=== PATIENT | female | born 1950 | race Caucasian/White ===

== ENCOUNTER 2020-10-17 05:49 | Inpatient (IN) ==
--- NOTE | 2020-09-27 14:47 | PAT Medication Instructions ---
Medication Instructions Date of Service September 27, 2020 Home Medications allopurinol 100 mg PO QAM amitriptyline 25 mg PO HS cholecalciferol (vitamin D3) [Vitamin D3] 25 mcg PO DAILY clonazepam [Klonopin] 1 mg PO HS fludrocortisone [Florinef] 0.05 mg PO BID fluoxetine [Prozac] 40 mg PO QAM hydrocortisone 5 mg PO UD hydrocortisone 15 mg PO QAM metformin 500 mg PO BID omega-3 fatty acids [Fish Oil] 1,000 mg PO BID omeprazole [Prilosec] 20 mg PO QAM rosuvastatin [Crestor] 20 mg PO QAM vit C,G-Ps-msvlz-lutein-zeaxan [PreserVision AREDS-2] 2 tab PO QAM STOP taking 2 weeks before surgery If surgery is within 2 weeks, stop taking as soon as possible. omega-3 fatty acids [Fish Oil] 1,000 mg PO BID vit C,B-Zy-jziex-lutein-zeaxan [PreserVision AREDS-2] 2 tab PO QAM DO NOT take the morning of surgery cholecalciferol (vitamin D3) [Vitamin D3] 25 mcg PO DAILY metformin 500 mg PO BID Take morning of surgery With a small sip of water, OTHERWISE NOTHING TO EAT OR DRINK AFTER MIDNIGHT: allopurinol 100 mg PO QAM fludrocortisone [Florinef] 0.05 mg PO BID fluoxetine [Prozac] 40 mg PO QAM hydrocortisone 5 mg PO UD hydrocortisone 15 mg PO QAM omeprazole [Prilosec] 20 mg PO QAM rosuvastatin [Crestor] 20 mg PO QAM Take evening before surgery amitriptyline 25 mg PO HS clonazepam [Klonopin] 1 mg PO HS fludrocortisone [Florinef] 0.05 mg PO BID metformin 500 mg PO BID omega-3 fatty acids [Fish Oil] 1,000 mg PO BID Other Notes If you have any questions please call us at [phone] or [phone] or [phone] or [phone]
--- NOTE | 2020-10-01 12:12 | Anesthesiology Consultation ---
Date of Service October 01, 2020 Assessment & Plan (1) Encounter for pre-operative examination: Chart Review Chart Review: Pending: Refer to Additional Notes / Consult section (pending surgeon ordered PCP clearance, preop Covid testing and response from endocrinology ) and Patient seen in Pre Admission Testing Awaiting surgeon ordered PCP clearance scheduled 10/14/20. Will also send note to patient's sheet manager inquiring if any pre,demetrice or post operative recommendations needed re: Addisons disease - Check BSG AM DOS Per PAT appt on 10/01/20, pt resides in [facility]. Denies any recent travel or large group activities. Uses PPE. No known Covid positive contacts or Covid related symptoms. No known Covid infection in the past 90 days. Educated patient to follow up with surgeon's office regarding Covid testing- educated Covid testing usually done 6-7 days prior to surgery. Educated on importance of self quarantining, social distancing and wearing mask in public both for the patient and household contacts. Teaching & Discussion Pre-Anesthesia Teaching/Discussion Notes: Instructed NPO after midnight before surgery,except medications with 15 cc of water. Medication instructions provided according to the PAT guidelines. History Surgery Operation Date: 10/17/20 10:05 Proposed Procedures p L5-S1 Decompression and Fusion, Spinal Cord Monitoring - Devin Vincent, Height/Weight Height: 5 ft 3.5 in Weight: 101.9 kg Allergies Allergy/AdvReac Type Severity Reaction Status Date / Time cefadroxil Allergy Unknown CAN'T Verified 09/24/20 15:11 REMEMBER Medications Home Medications Medication Instructions Recorded Confirmed Last Taken allopurinol 100 mg PO QAM 09/19/20 09/24/20 Unknown amitriptyline 25 mg PO HS 09/19/20 09/24/20 Unknown cholecalciferol (vitamin D3) 25 mcg PO DAILY 09/19/20 09/24/20 Unknown [Vitamin D3] clonazepam [Klonopin] 1 mg PO HS 09/19/20 09/24/20 Unknown fludrocortisone [Florinef] 0.05 mg PO BID 09/19/20 09/24/20 Unknown fluoxetine [Prozac] 40 mg PO QAM 09/19/20 09/24/20 Unknown hydrocortisone 5 mg PO UD 09/19/20 09/24/20 Unknown hydrocortisone 15 mg PO QAM 09/19/20 09/24/20 Unknown metformin 500 mg PO BID 09/19/20 09/24/20 Unknown omega-3 fatty acids [Fish Oil] 1,000 mg PO BID 09/19/20 09/24/20 Unknown omeprazole [Prilosec] 20 mg PO QAM 09/19/20 09/24/20 Unknown rosuvastatin [Crestor] 20 mg PO QAM 09/19/20 09/24/20 Unknown vit C,Z-Gh-prwhp-lutein-zeaxan 2 tab PO QAM 09/19/20 09/24/20 Unknown [PreserVision AREDS-2] Past Medical History Medical History Arvind disease Pt follows with Dr. Rik Can Stable Barretts esophagus Follows with GI Chronic back pain Degenerative disc disease Depression Diabetes mellitus, type 2 Well controlled and stable GERD (gastroesophageal reflux disease) Well controlled and stable Hiatal hernia Hyperlipidemia Diet controlled Sensorineural hearing loss of both ears Sleep apnea cpap Tinnitus, bilateral Will be getting hearing aids in the future Exercise / Class Metabolic Activity III < 4 Walking/Shop/Light housework (one flight of stairs- no chest pain- mild SOB ) Past Surgical History Surgical History History of arthroscopy of left shoulder History of bunionectomy of right great toe History of right shoulder replacement History of tonsillectomy and adenoidectomy Hx laparoscopic cholecystectomy Hx of arthroscopy of knee Hx of cataract surgery right and left Hx of colonoscopy Hx of detached retina repair right and left Hx of esophagogastroduodenoscopy Hx of tubal ligation Past Anesthesia History No Hx of Anesthesia Complications (one episode of grogginess - no reintubation or ICU stay ) and No Family Hx of Anesthesia Complications History of PONV No Hx of PONV and No Hx of Motion Sickness Social History Smoking Status: Current every day smoker tobacco type: cigarettes Smoking cigarettes per day: 1ppd Do You Dip or Chew Tobacco: No Hx Alcohol Use: No Hx Substance Use: No substance use type: does not use Review of Systems Patient denies chest pain, shortness of breath, dyspnea on exertion, cough, wheezing, palpitations. No hx of seizures, stroke, ME. No hx of blood clots or blood transfusions Physical Exam Vital Signs VITALS BP 152/80 P 71 TEMP 98.7 SP02 97% RESP 16 Constitutional no acute distress ENMT Mouth: no TMJ clicking Thyromental Distance: > or= 3.5 Finger Breadths (3.5) Mallampati Class: III Full upper denture Missing bottom molars Neck + short neck and + thick neck (mild ); neck extension not limited Respiratory normal respiratory effort; no respiratory distress Auscultation: lungs clear to auscultation bilaterally; no wheezes Cardiovascular Rate/Rhythm: regular rate and regular rhythm Heart Sounds: no murmur Vessels: no carotid bruit Musculoskeletal Spine: no pain with cervical ROM Extremities: extremities normal to inspection Psychiatric Orientation: alert Testing Laboratory Results 10/01/20 12:31 10/01/20 12:31 PT 10.3 Seconds (9.0-12.0) 10/01/20 12:31 INR 1.0 (0.9-1.1) 10/01/20 12:31 APTT 27.3 Seconds (21.0-31.0) 10/01/20 12:31 Hemoglobin A1c 6.1 % (4.5-5.6) H 10/01/20 12:31 Urine Color Yellow 10/01/20 12:31 Urine Appearance Clear (Clear) 10/01/20 12:31 Urine pH 6.5 (4.5-7.5) 10/01/20 12:31 Ur Specific [place] 1.014 (1.000-1.030) 10/01/20 12:31 Urine Protein Negative (Negative) 10/01/20 12:31 Urine Glucose (UA) Negative (Negative) 10/01/20 12:31 Urine Ketones Negative (Negative) 10/01/20 12:31 Urine Nitrite Negative (Negative) 10/01/20 12:31 Ur Leukocyte Esterase Trace (Negative) H 10/01/20 12:31 Urine WBC (Auto) 1-5 /hpf (0-5) 10/01/20 12:31 Urine RBC (Auto) 0-4 /hpf (0-4) 10/01/20 12:31 U Hyaline Cast (Auto) 1-5 /lpf (0-5) 10/01/20 12:31 U Epithel Cells (Auto) 5-10 /lpf (0-5) H 10/01/20 12:31 Urine Bacteria (Auto) Negative (Negative) 10/01/20 12:31 Blood Type A Positive 10/01/20 12:31 Antibody Screen NEGATIVE 10/01/20 12:31 Electrocardiogram Date: 10/01/20 Findings: + NSR @ (75bpm) Nonspecific T wave abnormality. Chest X-Ray Date: 10/01/20 Findings: + NAD Echocardiogram Date: 01/01/17 EF: 60% LV Function: normal Valvular Disease: + no significant valvular disease (Not well seen) Suboptimal quality of the study precludes a proper assessment, however there is probably normal LV cavity size well thickness and preserved LV systolic function. Probably normal RV size and systolic function. No obvious cardiac silhouette of embolism seen on this technically difficult and suboptimal study.
--- NOTE | 2020-10-01 13:13 | XRay Report ---
XR chest Pre-admission PA/Lat CLINICAL HISTORY: Preoperative chest COMPARISON STUDY: 12/30/2015 FINDINGS: The cardiac and mediastinal contours are normal. There is no failure. There is no focal pul monary consolidation. There are no pleural effusions. There are postsurgical changes of a reverse tot al right shoulder arthroplasty[ IMPRESSION: No active disease in the chest. ACT 112: Negative or not required by law. Electronically signed by: Yonas Bolivar M.D. 10/01/2020 1:11 PM
[2020-10-01 13:59] LABS: Basophils # (auto) 0.01 K/uL (0-0.2); Basophils % (auto) 0.1 %; Eosinophils # (auto) 0.08 K/uL (0-0.5); Eosinophils % (auto) 0.9 %; Hematocrit (blood only) 40.8 % (37-47); Hemoglobin 13.3 g/dL (12.0-16.0); Immature Granulocytes # (auto) 0.03 K/uL (0.00-0.02); Immature Granulocytes % (auto) 0.4 %; Lymphocytes # (auto) 1.37 K/uL (1.2-3.4); Lymphocytes % (auto) 16.2 %; Mean Corpuscular Hemoglobin 29.9 pg (25-34); Mean Corpuscular Hgb Conc 32.6 g/dL (32-36); Mean Corpuscular Volume 91.7 fL (80-100); Mean Platelet Volume 11.3 fL (7.4-10.4); Monocytes # (auto) 0.49 K/uL (0.11-0.59); Monocytes % (auto) 5.8 %; Neutrophils % (auto) 76.6 %; Platelet Count 244 K/uL (130-400); RDW Coefficient of Variation 15.7 % (11.5-14.5); RDW Standard Deviation 53.1 fL (36.4-46.3); Red Blood Count 4.45 M/uL (4.2-5.4); White Blood Count 8.48 K/uL (4.8-10.8)
[2020-10-01 14:06] LABS: Appearance Urine Clear (Clear); Bacteria Urine Automated Negative (Negative); Bilirubin Urine Negative (Negative); Blood Urine Negative (Negative); Color Urine Yellow; Glucose Urine UA Negative (Negative); Ketones Urine Negative (Negative); Leukocyte Esterase Urine Trace (Negative); Nitrite Urine Negative (Negative); Protein Urine Negative (Negative); RBC Urine Automated 0-4 /hpf (0-4); Specific Gravity Urine 1.014 (1.000-1.030); Urobilinogen Urine Negative (Negative); pH Urine 6.5 (4.5-7.5)
[2020-10-01 14:12] LABS: Partial Thromboplastin Time 27.3 Seconds (21.0-31.0); Prothrombin Time 10.3 Seconds (9.0-12.0)
[2020-10-01 14:45] LABS: Estimated Average Glucose 128 mg/dl; Hemoglobin A1C 6.1 % (4.5-5.6)
[2020-10-01 15:01] LABS: BUN Creatinine Ratio 19.9 (10-20); Calcium 8.6 mg/dl (8.5-10.1); Creatinine Clr Calc Pharmacy 81.5 ml/min; Est GFR (African American) 94.3; Est GFR (Non-African American) 81.3; Potassium 3.4 mmol/L (3.5-5.1)
--- NOTE | 2020-10-01 16:54 | Electrocardiogram Report ---
Test Reason : Blood Pressure : / mmHG Vent. Rate : 075 BPM Atrial Rate : 075 BPM P-R Int : 152 ms QRS Dur : 078 ms QT Int : 382 ms P-R-T Axes : 066 070 054 degrees QTc Int : 426 ms Normal sinus rhythm Nonspecific T wave abnormality Abnormal ECG When compared with ECG of 30-DEC-2015 10:30, Nonspecific T wave abnormality, improved in Inferior leads T wave inversion no longer evident in Anterior leads Confirmed by Johnathon Campos ([id number]) on 10/01/2020 4:54:16 PM Referred By: Devin Vincent Confirmed By:Az Campos
[2020-10-17] MEDS ORDERED: HYDROCORTISONE SOD 100 MG in SYRINGE 0 ML IV SCH (06:00)
[2020-10-17] MEDS ORDERED: ACETAMINOPHEN 500 MG TAB PO SCH (06:00)
[2020-10-17] MEDS ORDERED: ceFAZolin 2000MG 2,000 MG/15 ML SYR IV SCH (06:00)
[2020-10-17] MEDS ORDERED: HYDROCORTISONE SOD SUCCINATE 100 MG/2 ML VIAL IV SCH (06:00)
[2020-10-17] MEDS ORDERED: GABAPENTIN 300 MG CAP PO SCH (06:00)
[2020-10-17] MEDS ORDERED: CeleBREX 200 MG CAP PO SCH (06:00)
[2020-10-17] MEDS ORDERED: LR 15ML/HR IV SCH (06:00)
[2020-10-17] MEDS ORDERED: ePHEDrine sulfate 50 MG/ML AMP IV PRN ×2 (06:50→07:32)
[2020-10-17] MEDS ORDERED: HYDROmorphone INJ 2 MG/ML SYR/VIAL IV PRN ×2 (06:50→07:32)
[2020-10-17] MEDS ORDERED: fentaNYL citrate 100 MCG/2 ML VIAL IV PRN ×2 (06:50→07:32)
[2020-10-17] MEDS ORDERED: ATROPINE SULFATE 0.1 MG/ML 10ML SYR IV PRN ×2 (06:50→07:32)
[2020-10-17] MEDS ORDERED: ONDANSETRON INJ 2 MG/ML 2 ML VIAL IV PRN ×3 (06:50→10:54)
[2020-10-17] MEDS ORDERED: BACITRACIN INJ 50,000 UNIT VIAL ONE (06:55)
[2020-10-17] MEDS ORDERED: BUPIVACAINE/EPINEPHRINE 0.5% MPF 1:200,000 30 ML VIAL ONE (06:55)
[2020-10-17] MEDS ORDERED: fentaNYL citrate 100 MCG/2 ML VIAL ONE (07:10)
[2020-10-17] MEDS ORDERED: LIDOCAINE HCL 2% 2 ML VIAL/AMP(20MG/ML) INFIL ONE (07:10)
[2020-10-17] MEDS ORDERED: LARYING-O-JET KIT (LTA) ONE (07:10)
[2020-10-17] MEDS ORDERED: PHENYLEPHRINE 100MCG/ML 5ML SYR ONE (07:10)
[2020-10-17] MEDS ORDERED: MIDAZOLAM HCL 1 MG/ML 2ML VIAL ONE (07:10)
[2020-10-17] MEDS ORDERED: NEOSTIGMINE METHYLSULFATE 1 MG/ML 10ML VIAL ONE (07:10)
[2020-10-17] MEDS ORDERED: DEXAMETHASONE SOD INJ 4 MG/ML VIAL ONE (07:10)
[2020-10-17] MEDS ORDERED: ROCURONIUM BROMIDE 10 MG/ML 5 ML VIAL IV ONE (07:10)
[2020-10-17] MEDS ORDERED: ONDANSETRON INJ 2 MG/ML 2 ML VIAL ONE (07:10)
[2020-10-17] MEDS ORDERED: GLYCOPYRROLATE 0.2 MG/ML VIAL ONE (07:10)
[2020-10-17] MEDS ORDERED: ePHEDrine sulfate 50 MG/ML SYR ONE (07:10)
[2020-10-17] MEDS ORDERED: PROPOFOL IV EMULSION 10 MG/ML 20 ML VIAL IV ONE (07:10)
[2020-10-17] MEDS ORDERED: PROMETHAZINE HCL 12.5 MG in SODIUM CHLORIDE 0.9% 50 ML IV PRN ×2 (07:32→10:54)
--- NOTE | 2020-10-17 07:36 | History & Physical Bridge Note ---
Date of Service October 17, 2020 History & Physical Bridge Note I have examined the patient, reviewed the History & Physical and in the interval since the performance of the History & Physical I have noted the following changes of clinical significance: no changes noted
--- NOTE | 2020-10-17 07:37 | History & Physical Report ---
Date of Service October 17, 2020 Assessment & Plan (1) Neurogenic claudication due to lumbar spinal stenosis: Admission and Anticipated Discharge Date Admission Date: L5-S1 decompression fusion History of Present Illness Chief Complaint: Back and leg pain Primary Care Provider: Silvestre Harrington This is a 70-year-old female presents with chronic persistent back and leg pain. After failing course of nonoperative care is here for surgical invention. Allergies Allergy/AdvReac Type Severity Reaction Status Date / Time cefadroxil Allergy Unknown CAN'T Verified 10/17/20 06:30 REMEMBER Home Medications Medication Instructions Recorded Confirmed Type allopurinol 100 mg PO QAM 09/19/20 10/17/20 History cholecalciferol (vitamin D3) 25 mcg PO DAILY 09/19/20 10/17/20 History [Vitamin D3] fludrocortisone [Florinef] 0.05 mg PO BID 09/19/20 10/17/20 History fluoxetine [Prozac] 40 mg PO QAM 09/19/20 10/17/20 History hydrocortisone 5 mg PO UD 09/19/20 10/17/20 History hydrocortisone 15 mg PO QAM 09/19/20 10/17/20 History metformin 500 mg PO BID 09/19/20 10/17/20 History omega-3 fatty acids [Fish Oil] 1,000 mg PO BID 09/19/20 10/17/20 History omeprazole [Prilosec] 20 mg PO QAM 09/19/20 10/17/20 History rosuvastatin [Crestor] 20 mg PO QAM 09/19/20 10/17/20 History vit C,F-Ax-uzzyd-lutein-zeaxan 2 tab PO QAM 09/19/20 10/17/20 History [PreserVision AREDS-2] amitriptyline 50 mg PO HS 10/11/20 10/17/20 History clonazepam [Klonopin] 2 mg PO HS 10/11/20 10/17/20 History Past Med/Surg History Medical History [place] disease Pt follows with Dr. Jolly Anxiety Stable Barretts esophagus Follows with GI Chronic back pain Degenerative disc disease Depression Diabetes mellitus, type 2 Well controlled and stable GERD (gastroesophageal reflux disease) Well controlled and stable Hiatal hernia Hyperlipidemia Diet controlled Sensorineural hearing loss of both ears Sleep apnea cpap Tinnitus, bilateral Will be getting hearing aids in the future Surgical History History of arthroscopy of left shoulder History of bunionectomy of right great toe History of right shoulder replacement History of tonsillectomy and adenoidectomy Hx laparoscopic cholecystectomy Hx of arthroscopy of knee Hx of cataract surgery right and left Hx of colonoscopy Hx of detached retina repair right and left Hx of esophagogastroduodenoscopy Hx of tubal ligation Social History Smoking Status: Current every day smoker Cigarettes Per Day: 1ppd; Second Hand Exposure: No; Do You Dip or Chew Tobacco: No; Tobacco Cessation Education Requested by Patient: No Hx Alcohol Use: No Hx Substance Use: No Preferred Language: Egyptian Communication Ability: Effective Dinkey Engine Operator Required: No Beliefs That Will Affect Care: None Current Living Situation: Spouse Other Information That Helps Us Care for You: No Feels Safe at Home: Yes Safety Concerns: Feels Safe At This Time Assistive Devices: Denture - Upper and Glasses Physical Exam Physical Exam: Patient is alert and oriented Heart regular in rhythm Lungs clear to auscultation Results & Data ([facility]) Vital Signs (Past 12 Hours) Vital Signs Temp Pulse Resp BP Pulse Ox 10/17/20 06:18 36.6 C 69 18 188/86 H 96
[2020-10-17] MEDS ORDERED: CLINDAMYCIN 900 MG in DEXTROSE 5% 50 ML IV SCH (08:00)
[2020-10-17] MEDS ORDERED: HYDROmorphone INJ 2 MG/ML SYR/VIAL ONE (08:20)
[2020-10-17] MEDS ORDERED: FLOSEAL HEMOSTATIC MATRIX 10ML TOP ONE (08:32)
--- NOTE | 2020-10-17 09:23 | Operative Report ---
Post Operative Report Pre & Post Diagnosis Operation Date: 10/17/20 07:45 Pre-Op Diagnosis: Intervertebral Disc Disorders with Radiculopathy Post-Op Diagnosis: Intervertebral Disc Disorders with Radiculopathy I identified the patient and participated in the time-out.: Yes Procedure Operation Date: 10/17/20 07:45 Actual Procedures #1 lumbar decompression with bilateral medial facetectomies and foraminotomies L4-5 and L5-S1. #2 posterior spinal fusion L5-S1. #3 placement posterior instrumentation L5-S1. #4 interbody fusion L5-S1. #5 placement peek cage 11 x 22 mm at L5-S1 peer #6 placement locally harvested morselized autograft in the posterior lateral gutters. #7 placement infuse collagen sponge combined with master graft in the posterior gutters and I factor in the interbody space. Surgeon Devin Vincent, DO Laboratory Animal Caretaker Wisam Crook Estimated Blood Loss 50 Findings See Below The patient is 5 foot 3 inches tall weighing over 102 kg with a BMI in excess of 39. Patient's body habitus did add significant technical difficulty requiring her deepest retractors longus instruments in order to perform her procedure. This had at least 50% increase to the operative time. Specimens None Indications This is a 70-year-old female who presents above-mentioned diagnosis after failing course of nonoperative care is here for surgical invention. Description of Procedure Patient was met with identified informed consent obtained. Patient was then taken to the operative suite underwent ablation placed in a prone position the [place] table top Ricky frame. All bony prominences well-padded eyes inspected to ensure no external pressure placed upon. This point the lumbar spine was prepped and draped in a sterile fashion. Sharp dissection with the assistance of Bovie cautery was performed down to and exposing the lamina transverse proces ses of L5 and the sacral ala bilaterally. From caudal to cephalad fashion complete laminectomy L5 partial laminectomy L4 was performed including bilateral medial facetectomies and foraminotomies addressing severe spinal stenosis. Pedicle screws were then placed in L5 and S1 levels bilaterally with assistance of fluoroscopy and the purposes jim placed. By way of a transforaminal approach on the left complete discectomy was performed endplates curetted to subcortical bleeding bone and an 11 x 22 mm peek cage filled with I factor tapped into position. Rods were locked in final position bilaterally. The transverse processes of L5 and the sacral ala burred to subcortical bleeding bone. Infuse collagen sponge master graft local autograft placed in the posterior gutters. 15 round MARLON drain inserted. The incision was then closed with 1 Vicryl in the fascia 2-0 Vicryl subcutaneously and 4 Monocryl for final skin closure. Steri- Strip sterile dressings placed. Patient will continue PACU stable condition. Please note spinal cord monitoring was utilized at the procedure no changes noted. Lastly Wisam Crook was present at the entire procedure involved in patient positioning complex portions of the surgery and final skin closure. I attest to the content of the Intraoperative Record and any orders documented therein. Any exceptions are noted below.
--- NOTE | 2020-10-17 09:34 | Fluoroscopy Report ---
FL lumbar spine 2-3V CLINICAL HISTORY: L5-S1 DECOMP/FUSION COMPARISON STUDY: FLUOROSCOPY TIME: 19 seconds. NUMBER OF FLUOROSCOPIC IMAGES: 2 FINDINGS: 2 intraoperative fluoroscopic spot images reveal postsurgical changes at L5 discectomy and interbody fusion with posterior pedicle screw fixation. IMPRESSION: Postsurgical changes of an L5-S1 spinal decompression and fusion. ACT 112: Negative or not required by law. Electronically signed by: Yonas Bolivar M.D. 10/17/2020 9:33 AM
--- NOTE | 2020-10-17 10:21 | Anesthesiology Progress Note ---
Date of Service October 17, 2020 Anesthesia Post Procedure Vital Signs Vital Signs: Temp Pulse Pulse Resp BP BP Pulse Ox 10/17/20 10:15 81 16 138/80 99 10/17/20 10:05 36.5 C 81 16 152/88 H 99 10/17/20 09:55 79 16 157/88 H 100 10/17/20 09:45 83 16 172/81 H 100 10/17/20 09:38 36.6 C 86 16 164/99 H 100 10/17/20 06:18 36.6 C 69 18 188/86 H 96 Pain Intensity Lower Back: Pain Intensity: 5 Transfer of Care Handoff Completed per policy Notes Mental Status: alert / awake / arousable and participated in evaluation Patient Amnestic to Procedure: Yes Nausea / Vomiting: adequately controlled Pain: adequately controlled Airway Patency, RR, SpO2: stable & adequate BP & HR: stable & adequate Hydration State: stable & adequate Anesthetic Complications: no major complications apparent and Pt Satisfied with anesthetic care
[2020-10-17] MEDS ORDERED: diphenhydrAMINE Capsule 25 MG CAP PO PRN (10:54)
[2020-10-17] MEDS ORDERED: LORazepam 0.5 MG/1 ML VIAL IV PRN (10:54)
[2020-10-17] MEDS ORDERED: SOD PHOSPHATE/SOD BIPHOSPHATE ENEMA 132 ML BTL PR PRN (10:54)
[2020-10-17] MEDS ORDERED: HYDROmorphone INJ 0.5 MG/0.5 ML SYR IV PRN (10:54)
[2020-10-17] MEDS ORDERED: DO NOT ADMINISTER FLU VACCINE PRN (10:54)
[2020-10-17] MEDS ORDERED: ACETAMINOPHEN 1,000 MG/100 ML VIAL IV PRN (10:54)
[2020-10-17] MEDS ORDERED: METOCLOPRAMIDE HCL INJ 5 MG/ML 2 ML VIAL IV PRN (10:54)
[2020-10-17] MEDS ORDERED: NALOXONE HCL 0.4 MG/1 ML VIAL/CARP IV PRN (10:54)
[2020-10-17] MEDS ORDERED: LORazepam 0.5 MG TAB PO PRN (10:54)
[2020-10-17] MEDS ORDERED: ONDANSETRON 4 MG OD TAB PO PRN (10:54)
[2020-10-17] MEDS ORDERED: FAMOTIDINE 20 MG TAB PO PRN (10:54)
[2020-10-17] MEDS ORDERED: ALUMINUM/MAGNESIUM SUSP 30 ML UDC PO PRN (10:54)
[2020-10-17] MEDS ORDERED: hydrOXYzine HCl 25 MG TAB PO PRN (10:54)
[2020-10-17] MEDS ORDERED: DO NOT ADMINISTER PNEUMOCOCCAL VACCINE PRN (10:54)
[2020-10-17] MEDS ORDERED: MAGNESIUM HYDROXIDE SUSP 30 ML UDC PO PRN (10:54)
[2020-10-17] MEDS: SODIUM CHLORIDE 0.9% 1000ML 1,000 ML IV SCH ×2 (11:12→21:57)
--- NOTE | 2020-10-17 12:41 | Consultation ---
Date of Consultation October 17, 2020 Assessment & Plan (1) Encounter for postoperative care: H/O Neurogenic claudication due to lumbar spinal stenosis S/P L5-S1 decompression fusion - Patients seen in her room and doing well - No reported significant intraoperative complications - Perioperative management per primary team, pain control, DVT PPx, antibiotics, mobility -Systolic blood pressure on the higher side, likely secondary to pain - PT/OT consult Post-Operative Hypoxia Currently patient is on 1 L of nasal cannula. Does not use any nasal cannula oxygen at home. Likely in the setting of recent sedation use. Attempt to wean it down. Denies any chest pain or any shortness of breath. Encourage incentive spirometer. H/O Arvind disease: Preoperatively endocrinology recommended 100 mg of hydrocortisone IV prepro cedure followed by 50 mg to cortisone every 8 hours until she can tolerate p.o. Prior to admission patient is on Cortef 15 mg at 8 AM, 5 mg at 2 PM and 5 mg at 8 PM. Doses should be doubled for 3 to 7 days as per endocrinology for 3 to 7 days. 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, start ISS, glycemic control per pharmacy H/O Barrets Esophagus: stable H/O Chronic back pain/DJD: as above H/O Hyperlipidemia: c/w crestor 20 mg daily H/O Gout: c/w allopurinol 100 mg daily H/O Anxiety/insomnia: c/w klonopin 2mg HS H/O GERD: c/w Prilosec 20 mg daily H/O Sleep apnea: History of Present Illness Yesica Henry is 70 year old female with PMHx of Arvind's disease, diabetes mellitus type 2, chronic back pain, degenerative joint disease, anxiety, insomnia, hyperlipidemia, apnea, Hayes's esophagus, GERD and active smoker presenting on 10/17/20 for elective lumbar decompression with bilateral medial facetectomies and foraminotomies L4-5 and L5-S1. Patient was seen in her room recovering from anesthesia. Estimated Blood loss during operation was 50 ml. Overall patient appears to be doing okay. Primary complaint is a significant back pain at the moment. Denies any chest pain or shortness of breath. Denies any nausea or vomiting. Does report dizziness but that is at baseline. Denies any abdominal pain. Denies any weakness. Rest of the review of systems negative. Attending Physician: Devin Vincent DO Allergies Allergy/AdvReac Type Severity Reaction Status Date / Time cefadroxil Allergy Unknown CAN'T Verified 10/17/20 06:30 REMEMBER Home Medications Medication Instructions Recorded Confirmed Type allopurinol 100 mg PO QAM 09/19/20 10/17/20 History cholecalciferol (vitamin D3) 25 mcg PO DAILY 09/19/20 10/17/20 History [Vitamin D3] fludrocortisone [Florinef] 0.05 mg PO BID 09/19/20 10/17/20 History fluoxetine [Prozac] 40 mg PO QAM 09/19/20 10/17/20 History hydrocortisone 5 mg PO UD 09/19/20 10/17/20 History hydrocortisone 15 mg PO QAM 09/19/20 10/17/20 History metformin 500 mg PO BID 09/19/20 10/17/20 History omega-3 fatty acids [Fish Oil] 1,000 mg PO BID 09/19/20 10/17/20 History omeprazole [Prilosec] 20 mg PO QAM 09/19/20 10/17/20 History rosuvastatin [Crestor] 20 mg PO QAM 09/19/20 10/17/20 History vit C,M-Jf-xadqx-lutein-zeaxan 2 tab PO QAM 09/19/20 10/17/20 History [PreserVision AREDS-2] amitriptyline 50 mg PO HS 10/11/20 10/17/20 History clonazepam [Klonopin] 2 mg PO HS 10/11/20 10/17/20 History Patient History Medical History [place] disease Pt follows with Dr. Jolly Anxiety Stable Barretts esophagus Follows with GI Chronic back pain Degenerative disc disease Depression Diabetes mellitus, type 2 Well controlled and stable GERD (gastroesophageal reflux disease) Well controlled and stable Hiatal hernia Hyperlipidemia Diet controlled Sensorineural hearing loss of both ears Sleep apnea cpap Tinnitus, bilateral Will be getting hearing aids in the future Surgical History History of arthroscopy of left shoulder History of bunionectomy of right great toe History of right shoulder replacement History of tonsillectomy and adenoidectomy Hx laparoscopic cholecystectomy Hx of arthroscopy of knee Hx of cataract surgery right and left Hx of colonoscopy Hx of detached retina repair right and left Hx of esophagogastroduodenoscopy Hx of tubal ligation Social History Smoking Status: Current every day smoker Cigarettes Per Day: 1ppd; Second Hand Exposure: No; Do You Dip or Chew Tobacco: No; Tobacco Cessation Education Requested by Patient: No Hx Alcohol Use: No Hx Substance Use: No Preferred Language: Uzbek Communication Ability: Effective City Designer Required: No Beliefs That Will Affect Care: None Current Living Situation: Spouse Other Information That Helps Us Care for You: No Feels Safe at Home: Yes Safety Concerns: Feels Safe At This Time Assistive Devices: Denture - Upper and Glasses Review of Systems Review of Systems: All systems reviewed & are unremarkable except as noted in HPI & below Physical Exam Physical Exam: General: A&Ox3 HENT: NCAT, MMM, EOMI Eyes: PERRLA Neck: Supple, normal range of motion CVS: normal rate and rhythm Resp: b/l decrease breath sounds Abdomen: Soft, ND/NT Extremities: No c/c/e Neuro: face symmetric, no focal deficits apprecaited Skin: w no rashes/lesions/errythema Back: dressing intact, no active discharge noted Results & Data ([facility]) Vital Signs (Past 12 Hours) Vital Signs Temp Pulse Pulse Resp BP BP Pulse Ox 10/17/20 11:46 36.4 C L 68 18 186/94 H 100 10/17/20 11:15 36.4 C L 74 16 153/97 H 98 10/17/20 10:45 36.6 C 80 18 158/88 H 99 10/17/20 10:30 74 16 165/96 H 99 10/17/20 10:15 81 16 138/80 99 10/17/20 10:05 36.5 C 81 16 152/88 H 99 10/17/20 09:55 79 16 157/88 H 100 10/17/20 09:45 83 16 172/81 H 100 10/17/20 09:38 36.6 C 86 16 164/99 H 100 10/17/20 06:18 36.6 C 69 18 188/86 H 96
[2020-10-17] MEDS: HYDROmorphone INJ 1 MG/ML SYRINGE IV PRN ×2 (13:50→18:16)
[2020-10-17] MEDS: oxyCODONE HCL IR 5 MG TAB (IMMEDIATE RELEASE) PO PRN ×2 (16:38→22:01)
[2020-10-17] MEDS: CLINDAMYCIN 600 MG in DEXTROSE 5% 50 ML IV SCH ×2 (16:38→23:58)
[2020-10-17] MEDS: INSULIN ASPART 100 UNITS/ML 3 ML PEN SC SCH ×2 (18:09→22:02)
[2020-10-17] MEDS: HYDROCORTISONE SOD 50 MG in SYRINGE 0 ML IV SCH ×2 (18:10→23:58)
[2020-10-17] MEDS: DOCUSATE SODIUM/SENNA 50/8.6MG TAB PO SCH (22:05)
[2020-10-17] MEDS: clonazePAM 1 MG TAB PO SCH (23:58)
[2020-10-17] MEDS: FLUDROCORTISONE ACETATE 0.1 MG TAB PO SCH (23:59)
[2020-10-18] MEDS: HYDROmorphone INJ 1 MG/ML SYRINGE IV PRN ×3 (03:27→22:26)
[2020-10-18] MEDS: POLYETHYLENE (MIRALAX) 17 GM PACK PO SCH ×4 (05:30→23:46)
[2020-10-18] MEDS ORDERED: CLINDAMYCIN PHOS 900 MG/6 ML VIAL IV SCH (06:00)
[2020-10-18 07:22] LABS: Basophils # (auto) 0.01 K/uL (0-0.2); Basophils % (auto) 0.1 %; Immature Granulocytes # (auto) 0.02 K/uL (0.00-0.02); Immature Granulocytes % (auto) 0.2 %; Lymphocytes # (auto) 1.01 K/uL (1.2-3.4); Lymphocytes % (auto) 11.9 %; Mean Corpuscular Hemoglobin 30.1 pg (25-34); Mean Corpuscular Hgb Conc 33.3 g/dL (32-36); Mean Corpuscular Volume 90.4 fL (80-100); Mean Platelet Volume 11.2 fL (7.4-10.4); Monocytes # (auto) 0.46 K/uL (0.11-0.59); Monocytes % (auto) 5.4 %; Neutrophils # (auto) 6.96 K/uL (1.4-6.5); Neutrophils % (auto) 82.4 %; Platelet Count 215 K/uL (130-400); RDW Coefficient of Variation 15.7 % (11.5-14.5); RDW Standard Deviation 51.9 fL (36.4-46.3); Red Blood Count 3.65 M/uL (4.2-5.4); White Blood Count 8.46 K/uL (4.8-10.8)
[2020-10-18 07:55] LABS: BUN Creatinine Ratio 19.5 (10-20); Calcium 8.7 mg/dl (8.5-10.1); Creatinine Clr Calc Pharmacy 87.7 ml/min; Est GFR (African American) 102.5; Est GFR (Non-African American) 88.4; Potassium 3.2 mmol/L (3.5-5.1)
[2020-10-18] MEDS: oxyCODONE HCL IR 5 MG TAB (IMMEDIATE RELEASE) PO PRN ×3 (08:34→21:02)
[2020-10-18] MEDS: FLUDROCORTISONE ACETATE 0.1 MG TAB PO SCH ×2 (08:35→22:23)
[2020-10-18] MEDS ORDERED: POTASSIUM CHLORIDE PWD 20 MEQ PACK PO ONE (08:35)
[2020-10-18] MEDS: PANTOprazole 40 MG TAB PO SCH (08:37)
[2020-10-18] MEDS: FLUoxetine HCL 20 MG CAP PO SCH (08:38)
[2020-10-18] MEDS: CEROVITE ADV FORMULA TAB PO SCH (08:38)
[2020-10-18] MEDS: ROSUVASTATIN CALCIUM 20 MG TAB PO SCH (08:38)
[2020-10-18] MEDS: allopurinoL 100 MG TAB PO SCH (08:39)
[2020-10-18] MEDS: CHOLECALCIFEROL 1,000 UNITS 25 MCG TAB PO SCH (08:40)
[2020-10-18] MEDS: INSULIN ASPART 100 UNITS/ML 3 ML PEN SC SCH ×4 (08:42→21:05)
[2020-10-18] MEDS: HYDROCORTISONE SOD 50 MG in SYRINGE 0 ML IV SCH (09:31)
--- NOTE | 2020-10-18 10:05 | Orthopedic Progress Note ---
Date of Service October 18, 2020 Assessment & Plan (1) Neurogenic claudication due to lumbar spinal stenosis: Admission and Anticipated Discharge Date Admission Date: October 17, 2020 At this time we will initiate physical therapy monitor MARLON operatively discharge home later after this weekend. Subjective Back pain controlled leg pain improved. Physical Exam Physical Exam: Patient is in bed. She is somewhat uncomfortable. She has good strength testing. Results & Data ([facility]) Vital Signs (Past 12 Hours) Vital Signs Temp Pulse Resp BP Pulse Ox 10/18/20 07:31 36.7 C 78 16 162/83 H 95 10/18/20 03:28 36.5 C 77 16 168/88 H 96 10/17/20 22:31 36.5 C 76 18 173/94 H 96
[2020-10-18] MEDS: traMADol HCL 50 MG TABLET PO PRN (11:33)
[2020-10-18] MEDS: HYDROCORTISONE 10 MG TAB PO SCH ×2 (13:11→20:17)
--- NOTE | 2020-10-18 15:07 | Hospitalist Progress Note ---
Date of Service October 18, 2020 Assessment & Plan (1) Post-operative state: POD 1, pain present, controlled with medications. Cont plan per Ortho (2) Arvind disease: Tolerating PO. Continue with double her dose of cortef now for next 3-7 days (typical dose is 15mg PO @0800, 5mg @1400, 5mg @2000). (3) Sleep apnea: Cont CPAP (4) Diabetes mellitus, type 2: Controlled, cont current insulin coverage while on higher steroid dosage. (5) Anxiety: continues on amitryptiline and clonazepam 2mg PO qHS per home dosage. Educated her on trying to avoid combining narcotics for post op pain with this combination of medications in the evenings. (6) DVT prophylaxis: SCDs/ambulation per ortho Full Dispo-per ortho Thank you for this consultation. We will continue to follow this patient throughout the remainder of her hospitalization. Paula Patel DO [facility] Hospitalist Admission and Anticipated Discharge Date Admission Date: October 17, 2020 Subjective 70 yo F s/p L5-S1 decompression and fusion by Dr. Vincent on 10/17. She is doing well post op but is reporting some significant post operative pain. WE discussed the medication interactions between her newly increased clonazepam 2mg qHS along with her amitriptyline in addition to her narcotics post operatively. She verbalized understanding of the dangers of somnolence. 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 Review of Systems Review of Systems: All systems reviewed & are unremarkable except as noted in Subjective Physical Exam Physical Exam: CONSTITUTIONAL: WNWD, vitals as above, generally well- appearing EYES: normal conjunctivae, no scleral icterus ENT: external ear and nose normal, oropharynx clear RESPIRATORY: clear to auscultation bilaterally, no crackles, rales or wheezes, normal respiratory effort CARDIOVASCULAR: regular rate and rhythm, S1 and 2 heard without murmurs, gallops or rubs, no JVD, no peripheral edema GASTROINTESTINAL: soft, nontender, nondistended MUSCULOSKELETAL: no gross focal deficits. Limited mobility 2/2 post op pain. SKIN: warm and dry, back incision not assessed. NEUROLOGIC: CN 2-12 grossly intact, normal cognition, normal speech, no gross focal deficits. PSYCHIATRIC: alert cooperative and oriented to person, place and time. Results & Data Results & Data ([facility]) Vital Signs (Past 12 Hours) Vital Signs Temp Pulse Resp BP Pulse Ox 10/18/20 07:31 36.7 C 78 16 162/83 H 95 10/18/20 03:28 36.5 C 77 16 168/88 H 96 Laboratory Results Short CBC 10/18/20 Range/Units 05:57 WBC 8.46 (4.8-10.8) K/uL Hgb 11.0 L (12.0-16.0) g/dL Hct 33.0 L (37-47) % Plt Count 215 (130-400) K/uL BMP 10/18/20 05:57 Sodium 140 Potassium 3.2 L Chloride 105 Carbon Dioxide 28 BUN 14 Creatinine 0.70 Glucose 149 H Calcium 8.7 Medications Administered Current Inpatient Medications Acetaminophen (Acetaminophen 500 Mg Tab) 1,000 mg PO Q8H PRN PRN Reason: MILD Pain Scale 1,2,3 & Pre PT Stop: 11/16/20 10:53 Al Hydrox/Mg Hydrox/Simethicone (Aluminum/Magnesium Susp 30 Ml Udc) 30 ml PO Q6H PRN PRN Reason: Dyspepsia Stop: 11/16/20 10:53 Allopurinol (Allopurinol 100 Mg Tab) 100 mg PO [facility] Stop: 11/17/20 08:59 Last Admin: 10/18/20 08:39 Dose: 100 mg Documented by: Amitriptyline HCl (Amitriptyline Hcl 50 Mg Tab) 50 mg PO [facility] Stop: 11/16/20 20:59 Last Admin: 10/18/20 00:00 Dose: 50 mg Documented by: Bisacodyl (Bisacodyl 10 Mg Supp) 10 mg [place] DAILY PRN PRN Reason: Constipation Stop: 11/18/20 09:29 Clonazepam (Clonazepam 1 Mg Tab) 2 mg PO [facility] Stop: 11/16/20 20:59 Last Admin: 10/17/20 23:58 Dose: 2 mg Documented by: Diphenhydramine HCl (Diphenhydramine Capsule 25 Mg Cap) 25 mg PO Q6H PRN PRN Reason: Allergic Rhinitis/Insomnia Stop: 11/16/20 10:53 Famotidine (Famotidine 20 Mg Tab) 20 mg PO Q12H PRN PRN Reason: Dyspepsia Stop: 11/16/20 10:53 Fludrocortisone Acetate (Fludrocortisone Acetate 0.1 Mg Tab) 0.05 mg PO BID [facility] Stop: 11/16/20 20:59 Last Admin: 10/18/20 08:35 Dose: 0.05 mg Documented by: Fluoxetine HCl (Fluoxetine Hcl 20 Mg Cap) 40 mg PO QAM [facility] Stop: 11/17/20 08:59 Last Admin: 10/18/20 08:38 Dose: 40 mg Documented by: Hydrocortisone (Hydrocortisone 10 Mg Tab) 30 mg PO DAILY@0800 [facility] Stop: 11/18/20 07:59 Hydrocortisone (Hydrocortisone 10 Mg Tab) 10 mg PO BID@1400,2000 [facility] Stop: 11/17/20 13:59 Last Admin: 10/18/20 13:11 Dose: 10 mg Documented by: Hydromorphone HCl (Hydromorphone Inj 0.5 Mg/0.5 Ml Syr) 0.5 mg IV Q3H PRN PRN Reason: MOD pain (scale 4-6) & Pre PT Stop: 10/31/20 10:53 Hydromorphone HCl (Hydromorphone Inj 1 Mg/Ml Syringe) 1 mg IV Q3H PRN PRN Reason: severe pain (scale 7-10) Stop: 10/31/20 10:53 Last Admin: 10/18/20 03:27 Dose: 1 mg Documented by: Hydroxyzine HCl (Hydroxyzine Hcl 25 Mg Tab) 25 mg PO Q8H PRN PRN Reason: Anxiety Stop: 11/16/20 10:53 Acetaminophen (Ofirmev) 1,000 mg in 100 mls @ 400 mls/hr IV Q8H PRN PRN Reason: Pain Rating 1-3 & Pre PT Stop: 10/20/20 10:53 Last Infusion: 10/17/20 20:12 Dose: Infused Documented by: Lorazepam (Ativan) 0.5 mg in 1 mls @ 1 mls/min IV Q8H PRN PRN Reason: Sedation/Anxiety Stop: 11/16/20 10:53 Promethazine HCl 12.5 mg/ (Sodium Chloride) 50.5 mls @ 202 mls/hr IV Q6H PRN PRN Reason: Nausea &/or Vomiting Stop: 11/16/20 10:53 Influenza Virus Vaccine Quadrival (Do Not Administer Flu Vaccine) 1 ea N/A PRN PRN PRN Reason: Notification Stop: 11/16/20 10:53 Insulin Aspart (Insulin Aspart 100 Units/Ml 3 Ml Pen) 0 units SC [facility] Stop: 11/16/20 16:29 Last Admin: 10/18/20 12:23 Dose: 8 units Documented by: Lorazepam (Lorazepam 0.5 Mg Tab) 0.5 mg PO Q8H PRN PRN Reason: sedation/anxiety Stop: 11/16/20 10:53 Magnesium Hydroxide (Magnesium Hydroxide Susp 30 Ml Udc) 30 ml PO Q24H PRN PRN Reason: Constipation Stop: 11/16/20 10:53 Metoclopramide HCl (Metoclopramide Hcl Inj 5 Mg/Ml 2 Ml Vial) 10 mg IV Q6H PRN PRN Reason: Nausea &/or Vomiting Stop: 11/16/20 10:53 Multivitamins/Minerals (Cerovite Adv Formula Tab) 1 tab PO [facility]; Protocol Stop: 11/17/20 08:59 Last Admin: 10/18/20 08:38 Dose: 1 tab Documented by: Naloxone HCl (Naloxone Hcl 0.4 Mg/1 Ml Vial/Carp) 0.1 mg IV Q5M PRN PRN Reason: Oversedation/respiratory dep Stop: 11/16/20 10:53 Ondansetron HCl (Ondansetron Inj 2 Mg/Ml 2 Ml Vial) 4 mg IV Q6H PRN PRN Reason: Nausea &/or Vomiting Stop: 11/16/20 10:53 Ondansetron HCl (Ondansetron 4 Mg Od Tab) 4 mg PO Q6H PRN PRN Reason: Nausea Stop: 11/16/20 10:53 Oxycodone HCl (Oxycodone Hcl Ir 5 Mg Tab (Immediate Release)) 5 - 10 mg PO Q4H PRN PRN Reason: Pain & Pre PT Stop: 10/31/20 10:53 Last Admin: 10/18/20 13:13 Dose: 10 mg Documented by: Pantoprazole Sodium (Pantoprazole 40 Mg Tab) 40 mg PO [facility]; Protocol Stop: 11/17/20 08:59 Last Admin: 10/18/20 08:37 Dose: 40 mg Documented by: Pneumococcal Polyvalent Vaccine (Do Not Administer Pneumococcal Vaccine) 1 ea N/A PRN PRN PRN Reason: Notification Stop: 11/16/20 10:53 Polyethylene Glycol (Polyethylene (Miralax) 17 Gm Pack) 17 gm PO Q6 [facility] Stop: 11/17/20 05:59 Last Admin: 10/18/20 12:22 Dose: 17 gm Documented by: Rosuvastatin Calcium (Rosuvastatin Calcium 20 Mg Tab) 20 mg PO QAM [facility] Stop: 11/17/20 08:59 Last Admin: 10/18/20 08:38 Dose: 20 mg Documented by: Senna/Docusate Sodium (Docusate Sodium/Senna 50/8.6mg Tab) 2 tab PO HS [facility] Stop: 11/16/20 20:59 Last Admin: 10/17/20 22:05 Dose: 2 tab Documented by: Sodium Biphosphate/Sodium Phosphate (Sod Phosphate/Sod Biphosphate Enema 132 Ml Btl) 132 ml FL ONE PRN PRN Reason: Constipation Stop: 11/16/20 10:53 Tramadol HCl (Tramadol Hcl 50 Mg Tablet) 50 - 100 mg PO Q4H PRN PRN Reason: Moderate-Severe pain & Pre PT Stop: 11/16/20 10:53 Last Admin: 10/18/20 11:33 Dose: 100 mg Documented by: Vitamin D (Cholecalciferol 1,000 Units 25 Mcg Tab) 1,000 units PO DAILY [facility] Stop: 11/17/20 08:59 Last Admin: 10/18/20 08:40 Dose: 1,000 units Documented by:
[2020-10-18] MEDS: DOCUSATE SODIUM/SENNA 50/8.6MG TAB PO SCH (21:03)
[2020-10-18] MEDS: AMITRIPTYLINE HCL 50 MG TAB PO SCH ×2 (22:24)
[2020-10-18] MEDS: clonazePAM 1 MG TAB PO SCH (22:24)
[2020-10-19] MEDS: oxyCODONE HCL IR 5 MG TAB (IMMEDIATE RELEASE) PO PRN ×6 (02:41→23:37)
[2020-10-19] MEDS: POLYETHYLENE (MIRALAX) 17 GM PACK PO SCH ×4 (05:10→23:37)
[2020-10-19] MEDS: HYDROmorphone INJ 1 MG/ML SYRINGE IV PRN ×5 (05:13→21:54)
[2020-10-19] MEDS: CEROVITE ADV FORMULA TAB PO SCH (07:32)
[2020-10-19] MEDS: HYDROCORTISONE 10 MG TAB PO SCH ×3 (07:32→19:31)
[2020-10-19] MEDS: ROSUVASTATIN CALCIUM 20 MG TAB PO SCH (07:32)
[2020-10-19] MEDS: CHOLECALCIFEROL 1,000 UNITS 25 MCG TAB PO SCH (07:32)
[2020-10-19] MEDS: FLUDROCORTISONE ACETATE 0.1 MG TAB PO SCH ×2 (07:33→22:53)
[2020-10-19] MEDS: FLUoxetine HCL 20 MG CAP PO SCH (07:33)
[2020-10-19] MEDS: allopurinoL 100 MG TAB PO SCH (07:33)
[2020-10-19] MEDS: PANTOprazole 40 MG TAB PO SCH (07:34)
[2020-10-19] MEDS: INSULIN ASPART 100 UNITS/ML 3 ML PEN SC SCH ×4 (08:25→20:51)
[2020-10-19] MEDS ORDERED: bisacodyL 10 MG SUPP PR PRN (09:30)
--- NOTE | 2020-10-19 10:31 | Orthopedic Progress Note ---
Date of Service October 19, 2020 Assessment & Plan (1) Neurogenic claudication due to lumbar spinal stenosis: Admission and Anticipated Discharge Date Admission Date: October 17, 2020 At this time we will continue physical therapy we will change her dressing today. She tolerated physical therapy well throughout the day Wednesday anticipate discharge home Wednesday. Subjective Patient complaining of generalized back pain but tolerating physical therapy. Physical Exam Physical Exam: On exam she is standing and ambulating about the room. She has good strength testing. Results & Data ([facility]) Vital Signs (Past 12 Hours) Vital Signs Temp Pulse Resp BP Pulse Ox 10/19/20 07:54 36.7 C 74 18 164/91 H 100 10/18/20 23:59 36.8 C 77 20 155/84 H 95
--- NOTE | 2020-10-19 17:10 | Hospitalist Progress Note ---
Date of Service October 19, 2020 Assessment & Plan (1) Post-operative state: POD 2, pain present, uncontrolled despite medications. Continue to offer palliative solutions, discussed with primary care nurse. Cont plan per Ortho. Patient is tolerating physical therapy. (2) Arvind disease: Tolerating PO. Continue with double her dose of cortef now for next 3-7 days (typical dose is 15mg PO @0800, 5mg @1400, 5mg @2000). (3) Sleep apnea: Cont CPAP (4) Diabetes mellitus, type 2: Controlled, cont current insulin coverage while on higher steroid dosage. (5) Anxiety: continues on amitryptiline and clonazepam 2mg PO qHS per home dosage. Educated her on trying to avoid combining narcotics for post op pain with this combination of medications in the evenings. (6) DVT prophylaxis: SCDs/ambulation per ortho Full Dispo-per ortho Thank you for this consultation. We will continue to follow this patient throughout the remainder of her hospitalization. Paula Patel DO [facility] Hospitalist Admission and Anticipated Discharge Date Admission Date: October 17, 2020 Subjective 70-year-old female status post lumbar surgery on 10/17, postop day 2, reporting significant back pain. Patient is tearful and emotional today similar to yesterday. Blood pressure slightly elevated, likely secondary to high emotions and uncontrolled pain. Of note she is also on double her dose of chronic steroid at this time per perioperative protocol. She is otherwise eating and doing well. She reports climbing stairs today and was generally happy about this. Review of Systems Review of Systems: All systems reviewed & are unremarkable except as noted in Subjective Physical Exam Physical Exam: CONSTITUTIONAL: Obese, vitals as above, generally well- appearing, tearful EYES: normal conjunctivae, no scleral icterus ENT: external ear and nose normal RESPIRATORY: clear to auscultation bilaterally, no crackles, rales or wheezes, normal respiratory effort CARDIOVASCULAR: regular rate and rhythm, S1 and 2 heard without murmurs, gallops or rubs, no JVD, no peripheral edema GASTROINTESTINAL: soft, nontender, nondistended, protuberant MUSCULOSKELETAL: Lying supine in bed, limited mobility secondary to pain. SKIN: warm and dry, back incision covered with surgical dressing that is clean dry and intact. NEUROLOGIC: CN 2-12 grossly intact, normal cognition, normal speech, no gross focal deficits. PSYCHIATRIC: alert cooperative and oriented to person, place and time. Results & Data Results & Data ([facility]) Vital Signs (Past 12 Hours) Vital Signs Temp Pulse Resp BP Pulse Ox 10/19/20 15:00 36.9 C 83 18 165/75 H 96 10/19/20 07:54 36.7 C 74 18 164/91 H 100 Medications Administered Current Inpatient Medications Acetaminophen (Acetaminophen 500 Mg Tab) 1,000 mg PO Q8H PRN PRN Reason: MILD Pain Scale 1,2,3 & Pre PT Stop: 11/16/20 10:53 Al Hydrox/Mg Hydrox/Simethicone (Aluminum/Magnesium Susp 30 Ml Udc) 30 ml PO Q6H PRN PRN Reason: Dyspepsia Stop: 11/16/20 10:53 Allopurinol ([facility] 100 Mg Tab) [facility] Stop: 11/17/20 08:59 Last Admin: 10/19/20 07:33 Dose: 100 mg Documented by: Amitriptyline HCl (Amitriptyline Hcl 50 Mg Tab) 50 mg PO [facility] Stop: 11/16/20 20:59 Last Admin: 10/18/20 22:24 Dose: 50 mg Documented by: Bisacodyl (Bisacodyl 10 Mg Supp) 10 mg [place] DAILY PRN PRN Reason: Constipation Stop: 11/18/20 09:29 Clonazepam (Clonazepam 1 Mg Tab) 2 mg PO [facility] Stop: 11/16/20 20:59 Last Admin: 10/18/20 22:24 Dose: 2 mg Documented by: Diphenhydramine HCl (Diphenhydramine Capsule 25 Mg Cap) 25 mg PO Q6H PRN PRN Reason: Allergic Rhinitis/Insomnia Stop: 11/16/20 10:53 Famotidine (Famotidine 20 Mg Tab) 20 mg PO Q12H PRN PRN Reason: Dyspepsia Stop: 11/16/20 10:53 Fludrocortisone Acetate (Fludrocortisone Acetate 0.1 Mg Tab) 0.05 mg PO BID [facility] Stop: 11/16/20 20:59 Last Admin: 10/19/20 07:33 Dose: 0.05 mg Documented by: Fluoxetine HCl (Fluoxetine Hcl 20 Mg Cap) 40 mg PO [facility] Stop: 11/17/20 08:59 Last Admin: 10/19/20 07:33 Dose: 40 mg Documented by: Hydrocortisone (Hydrocortisone 10 Mg Tab) 30 mg PO DAILY@0800 [facility] Stop: 11/18/20 07:59 Last Admin: 10/19/20 07:32 Dose: 30 mg Documented by: Hydrocortisone (Hydrocortisone 10 Mg Tab) 10 mg PO BID@1400,2000 [facility] Stop: 11/17/20 13:59 Last Admin: 10/19/20 13:07 Dose: 10 mg Documented by: Hydromorphone HCl (Hydromorphone Inj 0.5 Mg/0.5 Ml Syr) 0.5 mg IV Q3H PRN PRN Reason: MOD pain (scale 4-6) & Pre PT Stop: 10/31/20 10:53 Hydromorphone HCl (Hydromorphone Inj 1 Mg/Ml Syringe) 1 mg IV Q3H PRN PRN Reason: severe pain (scale 7-10) Stop: 10/31/20 10:53 Last Admin: 10/19/20 12:42 Dose: 1 mg Documented by: Hydroxyzine HCl (Hydroxyzine Hcl 25 Mg Tab) 25 mg PO Q8H PRN PRN Reason: Anxiety Stop: 11/16/20 10:53 Acetaminophen (Ofirmev) 1,000 mg in 100 mls @ 400 mls/hr IV Q8H PRN PRN Reason: Pain Rating 1-3 & Pre PT Stop: 10/20/20 10:53 Last Infusion: 10/17/20 20:12 Dose: Infused Documented by: Lorazepam (Ativan) 0.5 mg in 1 mls @ 1 mls/min IV Q8H PRN PRN Reason: Sedation/Anxiety Stop: 11/16/20 10:53 Promethazine HCl 12.5 mg/ (Sodium Chloride) 50.5 mls @ 202 mls/hr IV Q6H PRN PRN Reason: Nausea &/or Vomiting Stop: 11/16/20 10:53 Influenza Virus Vaccine Quadrival (Do Not Administer Flu Vaccine) 1 ea N/A PRN PRN PRN Reason: Notification Stop: 11/16/20 10:53 Insulin Aspart (Insulin Aspart 100 Units/Ml 3 Ml Pen) 0 units SC ACHS [facility] Stop: 11/16/20 16:29 Last Admin: 10/19/20 12:32 Dose: 7 units Documented by: Lorazepam (Lorazepam 0.5 Mg Tab) 0.5 mg PO Q8H PRN PRN Reason: sedation/anxiety Stop: 11/16/20 10:53 Magnesium Hydroxide (Magnesium Hydroxide Susp 30 Ml Udc) 30 ml PO Q24H PRN PRN Reason: Constipation Stop: 11/16/20 10:53 Metoclopramide HCl (Metoclopramide Hcl Inj 5 Mg/Ml 2 Ml Vial) 10 mg IV Q6H PRN PRN Reason: Nausea &/or Vomiting Stop: 11/16/20 10:53 Multivitamins/Minerals (Cerovite Adv Formula Tab) [facility]; Protocol Stop: 11/17/20 08:59 Last Admin: 10/19/20 07:32 Dose: 1 tab Documented by: Naloxone HCl (Naloxone Hcl 0.4 Mg/1 Ml Vial/Carp) 0.1 mg IV Q5M PRN PRN Reason: Oversedation/respiratory dep Stop: 11/16/20 10:53 Ondansetron HCl (Ondansetron Inj 2 Mg/Ml 2 Ml Vial) 4 mg IV Q6H PRN PRN Reason: Nausea &/or Vomiting Stop: 11/16/20 10:53 Ondansetron HCl (Ondansetron 4 Mg Od Tab) 4 mg PO Q6H PRN PRN Reason: Nausea Stop: 11/16/20 10:53 Oxycodone HCl (Oxycodone Hcl Ir 5 Mg Tab (Immediate Release)) 5 - 10 mg PO Q4H PRN PRN Reason: Pain & Pre PT Stop: 10/31/20 10:53 Last Admin: 10/19/20 15:59 Dose: 10 mg Documented by: Pantoprazole Sodium (Pantoprazole 40 Mg Tab) 40 mg PO QAM [facility]; Protocol Stop: 11/17/20 08:59 Last Admin: 10/19/20 07:34 Dose: 40 mg Documented by: Pneumococcal Polyvalent Vaccine (Do Not Administer Pneumococcal Vaccine) 1 ea N/A PRN PRN PRN Reason: Notification Stop: 11/16/20 10:53 Polyethylene Glycol (Polyethylene (Miralax) 17 Gm Pack) 17 gm PO Q6 [facility] Stop: 11/17/20 05:59 Last Admin: 10/19/20 11:27 Dose: 17 gm Documented by: Rosuvastatin Calcium (Rosuvastatin Calcium 20 Mg Tab) 20 mg PO QAM [facility] Stop: 11/17/20 08:59 Last Admin: 10/19/20 07:32 Dose: 20 mg Documented by: Senna/Docusate Sodium (Docusate Sodium/Senna 50/8.6mg Tab) 2 tab PO HS [facility] Stop: 11/16/20 20:59 Last Admin: 10/18/20 21:03 Dose: 2 tab Documented by: Sodium Biphosphate/Sodium Phosphate (Sod Phosphate/Sod Biphosphate Enema 132 Ml Btl) 132 ml NV ONE PRN PRN Reason: Constipation Stop: 11/16/20 10:53 Tramadol HCl (Tramadol Hcl 50 Mg Tablet) 50 - 100 mg PO Q4H PRN PRN Reason: Moderate-Severe pain & Pre PT Stop: 11/16/20 10:53 Last Admin: 10/18/20 11:33 Dose: 100 mg Documented by: Vitamin D (Cholecalciferol 1,000 Units 25 Mcg Tab) 1,000 units PO DAILY [facility] Stop: 11/17/20 08:59 Last Admin: 10/19/20 07:32 Dose: 1,000 units Documented by:
[2020-10-19] MEDS: DOCUSATE SODIUM/SENNA 50/8.6MG TAB PO SCH (20:50)
[2020-10-19] MEDS: traMADol HCL 50 MG TABLET PO PRN (20:51)
[2020-10-19] MEDS: clonazePAM 1 MG TAB PO SCH (22:52)
[2020-10-19] MEDS: AMITRIPTYLINE HCL 50 MG TAB PO SCH (22:53)
[2020-10-20] MEDS: traMADol HCL 50 MG TABLET PO PRN ×3 (01:03→20:54)
[2020-10-20] MEDS: oxyCODONE HCL IR 5 MG TAB (IMMEDIATE RELEASE) PO PRN ×4 (03:42→23:02)
[2020-10-20 05:01] LABS: Basophils # (auto) 0.01 K/uL (0-0.2); Basophils % (auto) 0.1 %; Eosinophils # (auto) 0.08 K/uL (0-0.5); Eosinophils % (auto) 0.7 %; Hematocrit (blood only) 32.7 % (37-47); Hemoglobin 10.8 g/dL (12.0-16.0); Immature Granulocytes # (auto) 0.04 K/uL (0.00-0.02); Immature Granulocytes % (auto) 0.4 %; Lymphocytes # (auto) 2.34 K/uL (1.2-3.4); Mean Corpuscular Volume 90.8 fL (80-100); Mean Platelet Volume 10.3 fL (7.4-10.4); Monocytes # (auto) 1.02 K/uL (0.11-0.59); Monocytes % (auto) 9.1 %; Neutrophils # (auto) 7.66 K/uL (1.4-6.5); Neutrophils % (auto) 68.7 %; Platelet Count 186 K/uL (130-400); RDW Coefficient of Variation 15.8 % (11.5-14.5); RDW Standard Deviation 52.8 fL (36.4-46.3); White Blood Count 11.15 K/uL (4.8-10.8)
[2020-10-20] MEDS: POLYETHYLENE (MIRALAX) 17 GM PACK PO SCH ×4 (05:11→23:03)
[2020-10-20 05:19] LABS: BUN Creatinine Ratio 22.5 (10-20); Calcium 7.6 mg/dl (8.5-10.1); Creatinine Clr Calc Pharmacy 84.1 ml/min; Est GFR (African American) 97.4; Potassium 2.9 mmol/L (3.5-5.1)
[2020-10-20] MEDS: CHOLECALCIFEROL 1,000 UNITS 25 MCG TAB PO SCH (08:09)
[2020-10-20] MEDS: FLUDROCORTISONE ACETATE 0.1 MG TAB PO SCH ×2 (08:09→19:56)
[2020-10-20] MEDS: PANTOprazole 40 MG TAB PO SCH (08:09)
[2020-10-20] MEDS: ROSUVASTATIN CALCIUM 20 MG TAB PO SCH (08:09)
[2020-10-20] MEDS: CEROVITE ADV FORMULA TAB PO SCH (08:09)
[2020-10-20] MEDS: HYDROCORTISONE 10 MG TAB PO SCH ×3 (08:10→19:55)
[2020-10-20] MEDS: FLUoxetine HCL 20 MG CAP PO SCH (08:10)
[2020-10-20] MEDS: allopurinoL 100 MG TAB PO SCH (08:10)
[2020-10-20] MEDS: INSULIN ASPART 100 UNITS/ML 3 ML PEN SC SCH ×4 (08:45→20:54)
[2020-10-20] MEDS ORDERED: CYCLOBENZAPRINE HCL 10 MG TAB PO STA (10:54)
--- NOTE | 2020-10-20 10:57 | Orthopedic Progress Note ---
Date of Service October 20, 2020 Assessment & Plan (1) Neurogenic claudication due to lumbar spinal stenosis: Admission and Anticipated Discharge Date Admission Date: October 17, 2020 At this time we will add a muscle relaxer to the regiment. I encourage intermittent Ativan to also help with her anxiety. I would like her to continue with therapy at least transfers to the chair. Subjective Patient is struggling a bit today. She is worsening back and bilateral buttock pain. She states she had some difficulty getting out of bed last night but is emphasizing that she did not fall. In bed rest she is having some muscle spasms. But no radicular complaints. Physical Exam Physical Exam: On exam she does have good strength testing lower extremities. Sensory to cold and light touch is in place. She is tender to palpation of the perioperative region. Results & Data ([facility]) Vital Signs (Past 12 Hours) Vital Signs Temp Pulse Pulse Resp BP Pulse Ox 10/20/20 08:07 76 157/84 H 10/20/20 07:21 36.9 C 85 16 166/102 H 94 10/20/20 05:11 144/84 H 10/20/20 04:12 37.1 C 86 20 185/94 H 95 10/20/20 03:53 37.0 C 87 18 179/90 H 96 10/19/20 22:46 37.1 C 83 18 149/78 H 96
--- NOTE | 2020-10-20 12:15 | XRay Report ---
LUMBAR SPINE 2 VIEWS CLINICAL HISTORY: Postoperative examination. Lumbar spinal fusion. FINDINGS: AP and lateral standing views of the lumbar spine are obtained. No prior studies are availa ble for comparison at the time of dictation. The skeletal structures are osteopenic. There is no radi ographic evidence of fracture or malalignment. Vertebral body height and alignment are maintained thr oughout the lumbar spine. There has been discectomy at L4-L5 with laminectomy and posterior fusion at this level. Interpedicular screws are present at both levels. The orthopedic hardware appears intact . Anterior and lateral marginal osteophytes are seen throughout. The transverse processes appear inta ct. Mild disc space narrowing is noted at L5-S1. Degenerative endplate sclerosis is seen at L1-L2 and L2-L3. The bony pelvis is intact as visualized. Cholecystectomy clips are noted in the right upper q uadrant. There is no bowel obstruction. Atherosclerotic calcification is seen in the abdominal aorta. IMPRESSION: 1. No acute bony abnormality is seen involving the lumbar spine. 2. Osteopenia with degenerative and postoperative change as above. Electronically signed by: Chan Thorpe M.D. 10/20/2020 12:14 PM
[2020-10-20] MEDS: ACETAMINOPHEN 500 MG TAB PO PRN (14:44)
--- NOTE | 2020-10-20 15:03 | Hospitalist Progress Note ---
Date of Service October 20, 2020 Assessment & Plan (1) Post-operative state: POD 3, pain present, appears improved today. Continue to offer palliative solutions. Cont plan per Ortho. Patient is tolerating physical therapy. (2) Arvind disease: Tolerating PO. Continue with double her dose of cortef now for next 3-7 days (typical dose is 15mg PO @0800, 5mg @1400, 5mg @2000). Will de-escalate this back to her typical dose starting tomorrow with her blood pressure riding high. (3) Sleep apnea: Cont CPAP (4) Diabetes mellitus, type 2: Controlled, cont current insulin coverage while on higher steroid dosage. (5) Anxiety: continues on amitryptiline and clonazepam 2mg PO qHS per home dosage. Educated her on trying to avoid combining narcotics for post op pain with this combination of medications in the evenings. (6) DVT prophylaxis: SCDs/ambulation per ortho Full Dispo-per ortho Thank you for this consultation. We will continue to follow this patient throughout the remainder of her hospitalization. Paula Patel [facility] and Anticipated Discharge Date Admission Date: October 17, 2020 Subjective 70-year-old female status post spine surgery on 10/17. Patient reports pain and is sitting up in chair. She has multiple complaints and frequently changes subjects, it is difficult to follow the direction. She overall appears stable and improved. She continues on higher dose of her Cortef. She is eating and remains afebrile. Review of Systems Review of Systems: All systems reviewed & are unremarkable except as noted in Subjective Physical Exam Physical Exam: CONSTITUTIONAL: Obese, vitals as above, generally well- appearing EYES: normal conjunctivae, no scleral icterus ENT: external ear and nose normal RESPIRATORY: clear to auscultation bilaterally, no crackles, rales or wheezes, normal respiratory effort CARDIOVASCULAR: regular rate and rhythm, S1 and 2 heard without murmurs, gallops or rubs, no JVD, no peripheral edema GASTROINTESTINAL: soft, nontender, nondistended, protuberant MUSCULOSKELETAL: Lying supine in bed, limited mobility secondary to pain. SKIN: warm and dry, back incision covered with surgical dressing that is clean dry and intact. NEUROLOGIC: CN 2-12 grossly intact, normal cognition, normal speech, no gross focal deficits. PSYCHIATRIC: alert cooperative and oriented to person, place and time. Results & Data Results & Data ([facility]) Vital Signs (Past 12 Hours) Vital Signs Temp Pulse Pulse Resp BP Pulse Ox 10/20/20 14:31 36.9 C 88 18 159/93 H 97 10/20/20 08:07 76 157/84 H 10/20/20 07:21 36.9 C 85 16 166/102 H 94 10/20/20 05:11 144/84 H 10/20/20 04:12 37.1 C 86 20 185/94 H 95 10/20/20 03:53 37.0 C 87 18 179/90 H 96 Laboratory Results Short CBC 10/20/20 Range/Units 04:49 WBC 11.15 H (4.8-10.8) K/uL Hgb 10.8 L (12.0-16.0) g/dL Hct 32.7 L (37-47) % Plt Count 186 (130-400) K/uL BMP 10/20/20 04:49 Sodium 136 Potassium 2.9 L Chloride 100 Carbon Dioxide 31 BUN 16 Creatinine 0.73 Glucose 98 Calcium 7.6 L Medications Administered Current Inpatient Medications Acetaminophen (Acetaminophen 500 Mg Tab) 1,000 mg PO Q8H PRN PRN Reason: MILD Pain Scale 1,2,3 & Pre PT Stop: 11/16/20 10:53 Last Admin: 10/20/20 14:44 Dose: 1,000 mg Documented by: Al Hydrox/Mg Hydrox/Simethicone (Aluminum/Magnesium Susp 30 Ml Udc) 30 ml PO Q6H PRN PRN Reason: Dyspepsia Stop: 11/16/20 10:53 Allopurinol ([facility] 100 Mg Tab) [facility] Stop: 11/17/20 08:59 Last Admin: 10/20/20 08:10 Dose: 100 mg Documented by: Amitriptyline HCl (Amitriptyline Hcl 50 Mg Tab) 50 mg PO HS [facility] Stop: 11/16/20 20:59 Last Admin: 10/19/20 22:53 Dose: 50 mg Documented by: Bisacodyl (Bisacodyl 10 Mg Supp) 10 mg MN DAILY PRN PRN Reason: Constipation Stop: 11/18/20 09:29 Clonazepam (Clonazepam 1 Mg Tab) 2 mg PO HS [facility] Stop: 11/16/20 20:59 Last Admin: 10/19/20 22:52 Dose: 2 mg Documented by: Cyclobenzaprine HCl (Cyclobenzaprine Hcl 10 Mg Tab) 10 mg PO TID PRN PRN Reason: Muscle Spasm Stop: 11/19/20 13:59 Diphenhydramine HCl (Diphenhydramine Capsule 25 Mg Cap) 25 mg PO Q6H PRN PRN Reason: Allergic Rhinitis/Insomnia Stop: 11/16/20 10:53 Famotidine (Famotidine 20 Mg Tab) 20 mg PO Q12H PRN PRN Reason: Dyspepsia Stop: 11/16/20 10:53 Fludrocortisone Acetate (Fludrocortisone Acetate 0.1 Mg Tab) 0.05 mg PO BID [facility] Stop: 11/16/20 20:59 Last Admin: 10/20/20 08:09 Dose: 0.05 mg Documented by: Fluoxetine HCl (Fluoxetine Hcl 20 Mg Cap) 40 mg PO QAM [facility] Stop: 11/17/20 08:59 Last Admin: 10/20/20 08:10 Dose: 40 mg Documented by: Hydrocortisone (Hydrocortisone 10 Mg Tab) 30 mg PO DAILY@0800 [facility] Stop: 11/18/20 07:59 Last Admin: 10/20/20 08:10 Dose: 30 mg Documented by: Hydrocortisone (Hydrocortisone 10 Mg Tab) 10 mg PO BID@1400,2000 [facility] Stop: 11/17/20 13:59 Last Admin: 10/20/20 14:44 Dose: 10 mg Documented by: Hydromorphone HCl (Hydromorphone Inj 0.5 Mg/0.5 Ml Syr) 0.5 mg IV Q3H PRN PRN Reason: MOD pain (scale 4-6) & Pre PT Stop: 10/31/20 10:53 Hydromorphone HCl (Hydromorphone Inj 1 Mg/Ml Syringe) 1 mg IV Q3H PRN PRN Reason: severe pain (scale 7-10) Stop: 10/31/20 10:53 Last Admin: 10/19/20 21:54 Dose: 1 mg Documented by: Hydroxyzine HCl (Hydroxyzine Hcl 25 Mg Tab) 25 mg PO Q8H PRN PRN Reason: Anxiety Stop: 11/16/20 10:53 Lorazepam (Ativan) 0.5 mg in 1 mls @ 1 mls/min IV Q8H PRN PRN Reason: Sedation/Anxiety Stop: 11/16/20 10:53 Promethazine HCl 12.5 mg/ (Sodium Chloride) 50.5 mls @ 202 mls/hr IV Q6H PRN PRN Reason: Nausea &/or Vomiting Stop: 11/16/20 10:53 Influenza Virus Vaccine Quadrival (Do Not Administer Flu Vaccine) 1 ea N/A PRN PRN PRN Reason: Notification Stop: 11/16/20 10:53 Insulin Aspart (Insulin Aspart 100 Units/Ml 3 Ml Pen) 0 units SC ACHS [facility] Stop: 11/16/20 16:29 Last Admin: 10/20/20 12:48 Dose: 3 units Documented by: Lorazepam (Lorazepam 0.5 Mg Tab) 0.5 mg PO Q8H PRN PRN Reason: sedation/anxiety Stop: 11/16/20 10:53 Magnesium Hydroxide (Magnesium Hydroxide Susp 30 Ml Udc) 30 ml PO Q24H PRN PRN Reason: Constipation Stop: 11/16/20 10:53 Metoclopramide HCl (Metoclopramide Hcl Inj 5 Mg/Ml 2 Ml Vial) 10 mg IV Q6H PRN PRN Reason: Nausea &/or Vomiting Stop: 11/16/20 10:53 Multivitamins/Minerals (Cerovite Adv Formula Tab) 1 tab PO QAM [facility]; Protocol Stop: 11/17/20 08:59 Last Admin: 10/20/20 08:09 Dose: 1 tab Documented by: Naloxone HCl (Naloxone Hcl 0.4 Mg/1 Ml Vial/Carp) 0.1 mg IV Q5M PRN PRN Reason: Oversedation/respiratory dep Stop: 11/16/20 10:53 Ondansetron HCl (Ondansetron Inj 2 Mg/Ml 2 Ml Vial) 4 mg IV Q6H PRN PRN Reason: Nausea &/or Vomiting Stop: 11/16/20 10:53 Ondansetron HCl (Ondansetron 4 Mg Od Tab) 4 mg PO Q6H PRN PRN Reason: Nausea Stop: 11/16/20 10:53 Oxycodone HCl (Oxycodone Hcl Ir 5 Mg Tab (Immediate Release)) 5 - 10 mg PO Q4H PRN PRN Reason: Pain & Pre PT Stop: 10/31/20 10:53 Last Admin: 10/20/20 09:32 Dose: 10 mg Documented by: Pantoprazole Sodium (Pantoprazole 40 Mg Tab) 40 mg PO QAM [facility]; Protocol Stop: 11/17/20 08:59 Last Admin: 10/20/20 08:09 Dose: 40 mg Documented by: Pneumococcal Polyvalent Vaccine (Do Not Administer Pneumococcal Vaccine) 1 ea N/A PRN PRN PRN Reason: Notification Stop: 11/16/20 10:53 Polyethylene Glycol (Polyethylene (Miralax) 17 Gm Pack) 17 gm PO Q6 [facility] Stop: 11/17/20 05:59 Last Admin: 10/20/20 12:41 Dose: 17 gm Documented by: Rosuvastatin Calcium (Rosuvastatin Calcium 20 Mg Tab) 20 mg PO QAM [facility] Stop: 11/17/20 08:59 Last Admin: 10/20/20 08:09 Dose: 20 mg Documented by: Senna/Docusate Sodium (Docusate Sodium/Senna 50/8.6mg Tab) 2 tab PO HS [facility] Stop: 11/16/20 20:59 Last Admin: 10/19/20 20:50 Dose: 2 tab Documented by: Sodium Biphosphate/Sodium Phosphate (Sod Phosphate/Sod Biphosphate Enema 132 Ml Btl) 132 ml MN ONE PRN PRN Reason: Constipation Stop: 11/16/20 10:53 Tramadol HCl (Tramadol Hcl 50 Mg Tablet) 50 - 100 mg PO Q4H PRN PRN Reason: Moderate-Severe pain & Pre PT Stop: 11/16/20 10:53 Last Admin: 10/20/20 05:47 Dose: 100 mg Documented by: Vitamin D (Cholecalciferol 1,000 Units 25 Mcg Tab) 1,000 units PO DAILY [facility] Stop: 11/17/20 08:59 Last Admin: 10/20/20 08:09 Dose: 1,000 units Documented by:
[2020-10-20] MEDS: POTASSIUM CHLORIDE PWD 20 MEQ PACK PO SCH ×2 (15:41→20:56)
[2020-10-20] MEDS ORDERED: POTASSIUM CHLORIDE 40 MEQ in SODIUM CHLORIDE 0.9% 500 ML IV SCH (15:45)
[2020-10-20] MEDS: DOCUSATE SODIUM/SENNA 50/8.6MG TAB PO SCH (19:55)
[2020-10-20] MEDS: CYCLOBENZAPRINE HCL 10 MG TAB PO PRN (19:56)
[2020-10-20] MEDS: AMITRIPTYLINE HCL 50 MG TAB PO SCH (20:53)
[2020-10-20] MEDS: clonazePAM 1 MG TAB PO SCH (20:54)
[2020-10-21] MEDS: traMADol HCL 50 MG TABLET PO PRN ×2 (01:49→20:44)
[2020-10-21] MEDS: POLYETHYLENE (MIRALAX) 17 GM PACK PO SCH ×2 (05:20→11:37)
[2020-10-21] MEDS: oxyCODONE HCL IR 5 MG TAB (IMMEDIATE RELEASE) PO PRN ×4 (05:47→22:24)
[2020-10-21 06:13] LABS: Hemoglobin 11.6 g/dL (12.0-16.0); Mean Corpuscular Hemoglobin 30.8 pg (25-34); Mean Corpuscular Hgb Conc 34.1 g/dL (32-36); Mean Corpuscular Volume 90.2 fL (80-100); Mean Platelet Volume 10.7 fL (7.4-10.4); Platelet Count 206 K/uL (130-400); RDW Coefficient of Variation 15.7 % (11.5-14.5); Red Blood Count 3.77 M/uL (4.2-5.4); White Blood Count 9.91 K/uL (4.8-10.8)
[2020-10-21 06:31] LABS: BUN Creatinine Ratio 13.9 (10-20); Calcium 8.2 mg/dl (8.5-10.1); Creatinine Clr Calc Pharmacy 94.4 ml/min; Est GFR (Non-African American) 90.6
[2020-10-21] MEDS: CYCLOBENZAPRINE HCL 10 MG TAB PO PRN ×2 (07:59→16:45)
[2020-10-21] MEDS: ACETAMINOPHEN 500 MG TAB PO PRN ×2 (07:59→16:45)
[2020-10-21] MEDS: PANTOprazole 40 MG TAB PO SCH (08:40)
[2020-10-21] MEDS: HYDROCORTISONE 10 MG TAB PO SCH ×3 (08:40→20:46)
[2020-10-21] MEDS: ROSUVASTATIN CALCIUM 20 MG TAB PO SCH (08:41)
[2020-10-21] MEDS: FLUoxetine HCL 20 MG CAP PO SCH (08:41)
[2020-10-21] MEDS: allopurinoL 100 MG TAB PO SCH (08:41)
[2020-10-21] MEDS: CEROVITE ADV FORMULA TAB PO SCH (08:41)
[2020-10-21] MEDS: CHOLECALCIFEROL 1,000 UNITS 25 MCG TAB PO SCH (08:41)
[2020-10-21] MEDS: FLUDROCORTISONE ACETATE 0.1 MG TAB PO SCH ×2 (08:41→20:48)
[2020-10-21] MEDS: INSULIN ASPART 100 UNITS/ML 3 ML PEN SC SCH ×4 (08:44→20:40)
--- NOTE | 2020-10-21 12:15 | Orthopedic Progress Note ---
Date of Service October 21, 2020 Assessment & Plan (1) Neurogenic claudication due to lumbar spinal stenosis: Admission and Anticipated Discharge Date Admission Date: October 17, 2020 At this time we will continue physical. We anticipate discharge home tomorrow. Subjective Back pain improved. Physical Exam Physical Exam: On exam she appears much more comfortable today. Skin strength testing. Results & Data ([facility]) Vital Signs (Past 12 Hours) Vital Signs Temp Pulse Resp BP Pulse Ox 10/21/20 07:13 36.9 C 87 16 171/90 H 96
[2020-10-21] MEDS ORDERED: bisacodyL 10 MG SUPP PR PRN (15:17)
--- NOTE | 2020-10-21 15:20 | Hospitalist Progress Note ---
Date of Service October 21, 2020 Assessment & Plan (1) Encounter for postoperative care: H/O Neurogenic claudication due to lumbar spinal stenosis S/P L5-S1 decompression fusion - No reported significant intraoperative complications - Perioperative management per primary team, pain control, DVT PPx, antibiotics, mobility -Systolic blood pressure remains elevated likely in the setting of pain -Continue to work with PT/OT Constipation Patient reports she has not had any bowel movement since her surgery. Usually has bowel movement daily prior to admission. Currently remains on MiraLAX. Senna/Colace and as needed Dulcolax suppository. Post-Operative Hypoxia - resolved H/O Arvind disease: Preoperatively endocrinology recommended 100 mg of hydrocortisone IV preprocedure followed by 50 mg to cortisone every 8 hours until she can tolerate p.o. Prior to admission patient is on Cortef 15 mg at 8 AM, 5 mg at 2 PM and 5 mg at 8 PM. 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 Denies any chest pain or shortness of breath. Denies any nausea or vomiting. Has not had any bowel movement since the surgery. Denies any abdominal pain or dysuria. Review of Systems Review of Systems: All systems reviewed & are unremarkable except as noted in HPI & below Physical Exam Physical Exam: General: A&Ox3 HENT: NCAT, MMM, EOMI Eyes: PERRLA Neck: Supple, normal range of motion CVS: normal rate and rhythm Resp: b/l decrease breath sounds Abdomen: Soft, ND/NT Extremities: No c/c/e Neuro: face symmetric, no focal deficits apprecaited Skin: w no rashes/lesions/errythema Back: dressing intact, no active discharge noted Results & Data Results & Data ([facility]) Vital Signs (Past 12 Hours) Vital Signs Temp Pulse Resp BP Pulse Ox 10/21/20 14:00 36.5 C 89 18 158/86 H 95 10/21/20 07:13 36.9 C 87 16 171/90 H 96
[2020-10-21] MEDS: SENNA 8.6 MG TAB PO SCH (16:46)
[2020-10-21] MEDS: DOCUSATE SODIUM 100 MG CAP PO SCH (20:40)
[2020-10-21] MEDS: DOCUSATE SODIUM/SENNA 50/8.6MG TAB PO SCH (20:40)
[2020-10-21] MEDS: clonazePAM 1 MG TAB PO SCH (22:23)
[2020-10-21] MEDS: AMITRIPTYLINE HCL 50 MG TAB PO SCH (22:24)
[2020-10-22] MEDS: oxyCODONE HCL IR 5 MG TAB (IMMEDIATE RELEASE) PO PRN ×4 (02:36→19:28)
[2020-10-22] MEDS: CYCLOBENZAPRINE HCL 10 MG TAB PO PRN ×3 (02:54→21:12)
[2020-10-22] MEDS: ACETAMINOPHEN 500 MG TAB PO PRN (05:31)
[2020-10-22] MEDS: traMADol HCL 50 MG TABLET PO PRN (05:32)
[2020-10-22] MEDS: SENNA 8.6 MG TAB PO SCH ×2 (07:13→07:44)
[2020-10-22] MEDS: FLUDROCORTISONE ACETATE 0.1 MG TAB PO SCH ×2 (07:41→21:12)
[2020-10-22] MEDS: PANTOprazole 40 MG TAB PO SCH (07:41)
[2020-10-22] MEDS: HYDROCORTISONE 10 MG TAB PO SCH ×3 (07:42→21:13)
[2020-10-22] MEDS: CHOLECALCIFEROL 1,000 UNITS 25 MCG TAB PO SCH (07:43)
[2020-10-22] MEDS: DOCUSATE SODIUM 100 MG CAP PO SCH ×2 (07:43→21:12)
[2020-10-22] MEDS: CEROVITE ADV FORMULA TAB PO SCH (07:43)
[2020-10-22] MEDS: allopurinoL 100 MG TAB PO SCH (07:43)
[2020-10-22] MEDS: FLUoxetine HCL 20 MG CAP PO SCH (07:43)
[2020-10-22] MEDS: ROSUVASTATIN CALCIUM 20 MG TAB PO SCH (07:44)
[2020-10-22] MEDS: INSULIN ASPART 100 UNITS/ML 3 ML PEN SC SCH ×4 (07:46→21:45)
--- NOTE | 2020-10-22 09:18 | Orthopedic Progress Note ---
Date of Service October 22, 2020 Assessment & Plan (1) Neurogenic claudication due to lumbar spinal stenosis: Admission and Anticipated Discharge Date Admission Date: October 17, 2020 At this time we will plan for discharge tomorrow if she would have to have home physical therapy. Patient understands and agrees. Subjective Patient complaining of back pain did tolerate physical therapy this morning. Physical Exam Physical Exam: Exam she does appear comfortable. Is excellent strength testing lower extremities. No tension signs. Results & Data ([facility]) Vital Signs (Past 12 Hours) Vital Signs Temp Pulse Resp BP BP Pulse Ox 10/22/20 07:52 164/79 H 10/22/20 06:44 37 C 81 18 92 10/21/20 22:00 36.6 C 84 16 147/77 H 94
--- NOTE | 2020-10-22 16:49 | Hospitalist Progress Note ---
Date of Service October 22, 2020 Assessment & Plan (1) Encounter for postoperative care: H/O Neurogenic claudication due to lumbar spinal stenosis S/P L5-S1 decompression fusion - No reported significant intraoperative complications - Perioperative management per primary team, pain control, DVT PPx, antibiotics, mobility -Systolic blood pressure remains elevated likely in the setting of pain -Continue to work with PT/OT Constipation - resolved Post-Operative Hypoxia - resolved H/O [place] disease: Preoperatively endocrinology recommended 100 mg of hydrocortisone IV preprocedure followed by 50 mg to cortisone every 8 hours until she can tolerate p.o. Prior to admission patient is on Cortef 15 mg at 8 AM, 5 mg at 2 PM and 5 mg at 8 PM. c/w Florinef 0.05 mg BID. 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 Pain continues to be an issue. Have had bowel movement nausea feels better. Rest of the system is negative. Review of Systems Review of Systems: All systems reviewed & are unremarkable except as noted in HPI & below Physical Exam Physical Exam: General: A&Ox3 HENT: NCAT, MMM, EOMI Eyes: PERRLA Neck: Supple, normal range of motion CVS: normal rate and rhythm Resp: b/l decrease breath sounds Abdomen: Soft, ND/NT Extremities: No c/c/e Neuro: face symmetric, no focal deficits apprecaited Skin: w no rashes/lesions/errythema Back: dressing intact, no active discharge noted Results & Data Results & Data ([facility]) Vital Signs (Past 12 Hours) Vital Signs Temp Pulse Resp BP BP Pulse Ox 10/22/20 15:02 36.8 C 86 16 155/91 H 97 10/22/20 07:52 164/79 H 10/22/20 06:44 37 C 81 18 92
[2020-10-22] MEDS: DOCUSATE SODIUM/SENNA 50/8.6MG TAB PO SCH (21:12)
[2020-10-22] MEDS: clonazePAM 1 MG TAB PO SCH (21:12)
[2020-10-22] MEDS: AMITRIPTYLINE HCL 50 MG TAB PO SCH (21:15)
[2020-10-23] MEDS: oxyCODONE HCL IR 5 MG TAB (IMMEDIATE RELEASE) PO PRN ×2 (06:24→10:45)
[2020-10-23] MEDS: CYCLOBENZAPRINE HCL 10 MG TAB PO PRN (06:33)
[2020-10-23] MEDS: FLUDROCORTISONE ACETATE 0.1 MG TAB PO SCH (07:42)
[2020-10-23] MEDS: FLUoxetine HCL 20 MG CAP PO SCH (07:43)
[2020-10-23] MEDS: HYDROCORTISONE 10 MG TAB PO SCH (07:43)
[2020-10-23] MEDS: DOCUSATE SODIUM 100 MG CAP PO SCH (07:44)
[2020-10-23] MEDS: CEROVITE ADV FORMULA TAB PO SCH (07:46)
[2020-10-23] MEDS: ROSUVASTATIN CALCIUM 20 MG TAB PO SCH (07:46)
[2020-10-23] MEDS: CHOLECALCIFEROL 1,000 UNITS 25 MCG TAB PO SCH (07:46)
[2020-10-23] MEDS: allopurinoL 100 MG TAB PO SCH (07:47)
[2020-10-23] MEDS: INSULIN ASPART 100 UNITS/ML 3 ML PEN SC SCH ×2 (07:50→12:49)
[2020-10-23] MEDS: traMADol HCL 50 MG TABLET PO PRN (09:31)
[2020-10-23] MEDS: PANTOprazole 40 MG TAB PO SCH (09:31)
--- NOTE | 2020-10-23 10:11 | Discharge Summary ---
Date of Service October 23, 2020 Admission HPI Per Admitting Provider This is a 70-year-old female presents with chronic persistent back and leg pain. After failing course of nonoperative care is here for surgical invention. Principal Diagnosis Lumbar spinal stenosis with neurogenic claudication Discharge Data Allergies Allergy/AdvReac Type Severity Reaction Status Date / Time cefadroxil Allergy Unknown CAN'T Verified 10/17/20 06:30 REMEMBER Consultations 10/17/20 10:54 Consult Case Management - Discharge Planning Routine Consult Hospitalist Routine Procedures Performed Operation Date: 10/17/20 07:45 Actual Procedures p L5-S1 Decompression and Fusion, Spinal Cord Monitoring(Not Applicable) - Devin Vincent DO Ordered Studies 10/17/20 07:45 FL fluoroscopy <1hr Routine FL lumbar spine 2-3V Routine Hospital Course (1) Neurogenic claudication due to lumbar spinal stenosis: Patient with lumbar decompression fusion tolerated so was taken to orthopedic for postoperative. She had a slow postoperative course but has had multiple medical issues. Nevertheless she did progress was able to function independently and safely discharged home with home health. Discharge orders instructions from the chart for further review. Total Time Total Time Spent Total Time Spent (In Minutes): 20 minutes Discharge Plan Discharge Items Patient Disposition: Home - Home Health Services Reason For Visit: Intervertebral Disc Disorders with Radiculopathy Discharge Diagnosis: Lumbar spinal stenosis with neurogenic claudication Activity: As commented below Non-emergency contact: Primary Care Provider Call non-emergency contact if: you have any medication questions Follow-up/Referrals: Silvestre Harrington [Primary Care Provider] - Diet: Regular Addtl Attending Provider Instructions: ACTIVITY RECOMMENDATIONS: SELF CARE INSTRUCTIONS AFTER THORACIC/LUMBAR FUSIONS 1. You may walk to your tolerance. It is good exercise for your legs and back. Expect some back and intermittent leg aches and pains. 2. You may perform "counter-top" level activities (make a sandwich, bernadine with a project, etc.). 3. No bending or lifting of more than 10 pounds or back twisting of any nature (roll like a log when turning in bed). 4. You may ride in a car for 20-30 minutes at a time. No driving until after your first visit with your doctor. 5. Frequent changes of position and restricting sitting to 30 minutes at a time will help limit the amount of back spasms and stiffness you may experience. 6. You may discontinue the use of ambulatory aids (cane, crutches, etc.) once your strength and confidence allow. 7. You may cartographic engineer the shower and let water strike your incision when you arrive home at least once daily. Do not take a tub bath, sit in a hot tub or go into a swimming pool until after your first recheck in the office. SPECIAL CARE INSTRUCTIONS: VERY IMPORTANT TO READ AND REVIEW A. Your surgical incision has been closed with a cosmetic suture under the skin that will dissolve in about 6 weeks. In 14 days, you can use a pair of clean scissors and cut the suture that is left outside of the skin at the ends of your incision. 1. The small skin tapes can be removed 7 days after surgery if they have not fallen off by that point. 2. You may keep the wound open to air as much as possible to promote healing after post-op day number 5 unless told otherwise by your doctor. 3. If you think the wound looks like it is becoming infected (redness or worsening drainage) and/or you are experiencing fever, chill or worsening back pain and muscle spasms, contact the office so that we may evaluate you as soon as possible. B. Complications are uncommon, but please contact us if you have any signs or symptoms of: 1. wound infection (fever higher than 102.5 degrees F, redness, separation of wound, drainage, or increasing pain from the incision) 2. blood clots in legs (pain, swelling, redness and warmth in legs) 3. urinary tract infection (fever higher than 102.5 degrees F, burning upon urination or increased frequency of urination) 4. nerve problems (inability to walk on your toes or heels, numbness, loss of bowel or bladder control) 5. any other symptoms that concern you C. Please call the office at if you have any concerns or questions about your operation or recovery. D. No smoking! Smoking drastically decreases the chance of a solid fusion. E. Do not take any anti-inflammatory medications (Indocin, Advil, Motrin, Aspirin, Naprosyn, etc.) as these may inhibit the chance of a solid fusion. Tylenol is okay to take for pain. MANAGING PAIN AFTER SPINAL SURGERY 1. Narcotic medication is intended for short-term use and will be provided for surgical pain. Surgical pain usually lasts for a period of 4-6 weeks. Narcotic medication includes Percocet, Vicodin, Darvocet, Tylenol #3 or Lortab. 2. Longer-term pain is more appropriately treated with non-narcotic medication such as Tylenol ES. 3. Muscle spasm is not appropriately treated with narcotics. Muscle relaxers such as Soma, Flexeril or Skelaxin can be used along with Tylenol ES. 4. Remember that we all live with some "aches and pains". This is not unusual or uncommon after an injury or as we get older. a. Back pain is expected and may include muscle spasms for 4 to 6 weeks after surgery. The pain should gradually improve. If the pain worsens for no apparent reason, please contact the office. b. Intermittent leg pain may also be experienced and should not be concerned about unless it worsens for no apparent reason. If so, please contact the office. 5. We will provide appropriate medication within the normal guidelines of their prescribed use. We will also be very cautious and aware of potential abuse and extended duration of patients' medication needs. a. Pain medications are for your comfort and to assist with sleep and rest so that the tissue can heal. They are not provided in order to return to normal activity and should not be used through the day. To do so or worsening pain at night can result from ongoing tissue damage and development of tolerance to the prescribed medicine. 6. Please allow 2-3 days to process refills. Prescriptions will not be mailed but must be picked up at the office. FOLLOW UP VISIT: Keep your scheduled follow-up appointment. Any questions, please call the office at . Pending Studies at Discharge: No Stand-Alone Forms: [facility], Smoking Cessation Medications and DC Order Prescriptions: New tramadol 50 mg tablet 50 mg PO Q6H PRN (Reason: pain, moderate) Qty: 30 RF: 0 oxycodone 5 mg tablet 5 mg PO Q6H PRN (Reason: pain, severe) Qty: 30 RF: 0 cyclobenzaprine 10 mg Tablet 10 mg PO TID PRN (Reason: muscle spasm) Qty: 20 RF: 0 Continued fluoxetine [Prozac] 40 mg Capsule 40 mg PO QAM RF: 0 metformin 500 mg Tablet 500 mg PO BID RF: 0 allopurinol 100 mg Tablet 100 mg PO QAM RF: 0 omeprazole 20 mg Capsule,Delayed Release(Dr/Ec) 20 mg PO QAM RF: 0 hydrocortisone 10 mg Tablet 5 mg PO UD RF: 0 hydrocortisone 10 mg Tablet 15 mg PO QAM RF: 0 fludrocortisone 0.1 mg Tablet 0.05 mg PO BID RF: 0 omega-3 fatty acids Capsule 1,000 mg PO BID RF: 0 rosuvastatin [Crestor] 20 mg Tablet 20 mg PO QAM RF: 0 cholecalciferol (vitamin D3) [Vitamin D3] 25 mcg (1,000 unit) Tablet 25 mcg PO DAILY RF: 0 PreserVision AREDS-2 250-90-40-1 mg Capsule 2 tab PO QAM RF: 0 clonazepam [Klonopin] 1 mg Tablet 2 mg PO HS RF: 0 amitriptyline 50 mg Tablet 50 mg PO HS RF: 0 Discharge Orders: Discharge Order (Routine); Ordered 10/23/20 Ordered By: Devin Riojas/Other Patient Handouts: Managing Type 2 Diabetes Admission Data Admit Date/Time: 10/17/20 10:51 Attending Provider: Devin Vincent Admit Provider: Devin Vincent Primary Care Provider: Silvestre Harrington Other Providers: Destiny Gusman ; Chante Pierre I.
== END 2020-10-23 13:31 | disposition home health service (06) | DRG 454 ==
LOC: ASU 05:49 → 3E 10:51